=== PATIENT | male | born 1955 | race Caucasian/White ===

== ENCOUNTER 2022-05-17 13:20 | Outpatient (CLI) | payer OTHER, SELFPAY ==
[2022-05-18 14:48] LABS: Albumin* 4.6 g/dL (3.3-5.0)
[2022-05-18 14:49] LABS: Chloride* 105 mmol/L (96-114); Potassium* 5.2 mmol/L (3.6-5.1); Sodium* 142 mmol/L (135-149)
[2022-05-18 14:51] LABS: Aspartate Amino Transferase* 22 U/L (12-35); Bilirubin Total* 0.5 mg/dL (0.1-1.5); Blood Urea Nitrogen* 37 mg/dL (7-30); Carbon Dioxide* 28 mmol/L (20-32); Cholesterol* 130 mg/dL (90-199); Creatinine* 1.5 mg/dL (0.5-1.5); Estimated Glomerular Filt Rate 50 ml/min; Total Protein* 7.3 g/dL (6.0-8.3)
[2022-05-18 14:52] LABS: Alanine Aminotransferase* 17 U/L (4-50); Alkaline Phosphatase* 98 U/L (40-150); Calcium* 10.2 mg/dL (8.4-10.6); Glucose* 98 mg/dL (60-115); HDL Cholesterol* 55 mg/dL (>=40); LDL Cholesterol Calculated 54 mg/dL (<100); Triglycerides* 105 mg/dL (40-149)
[2022-05-18 15:23] LABS: PSA Screen* 0.34 ng/mL (0.10-4.00)
== END 2022-05-17 13:21 | disposition home or self-care (01) ==
PROVIDERS: PCP Family Medicine; Visit Provider Family Medicine
DX: Z00.00 Encounter for general adult medical examination without abnormal findings (principal); F41.8 Other specified anxiety disorders; R63.4 Abnormal weight loss; E78.5 Hyperlipidemia, unspecified; I10 Essential (primary) hypertension; D64.9 Anemia, unspecified; Z12.5 Encounter for screening for malignant neoplasm of prostate
CPT/HCPCS: 80053; 80061; 84153; 84443

== ENCOUNTER 2022-07-12 14:54 | Outpatient (CLI) | payer OTHER, SELFPAY ==
[2022-07-12 22:08] LABS: Iron* 70 ug/dL (49-181)
[2022-07-12 22:51] LABS: Vitamin B12* 572 pg/mL (243-894)
[2022-07-14 15:51] LABS: Hematocrit (client supplied) 37.6 %
== END 2022-07-12 14:55 | disposition home or self-care (01) ==
PROVIDERS: PCP Family Medicine; Visit Provider Family Medicine
DX: Z00.00 Encounter for general adult medical examination without abnormal findings (principal); D64.9 Anemia, unspecified; R63.4 Abnormal weight loss; C20 Malignant neoplasm of rectum; R07.9 Chest pain, unspecified
CPT/HCPCS: 82607; 82728; 82747; 83540; 84443

== ENCOUNTER 2022-07-27 13:29 | Outpatient (CLI) | payer OTHER, SELFPAY ==
[2022-07-27 14:35] VITALS: BP 122/82; PULSE 103; RESP 16
--- NOTE | 2022-07-27 14:51 | W.PM.STED ---
Stress Test Note Date Time Seen by Provider: 14:28 Date Seen: 07/27/22 Date of test: 07/27/22 Providers Referring provider: Remy Valentine Primary care provider: Remy Valentine Stress test physician: Licha Patrick Stress Test Note Stress test ordered: Stress Echo Indication for test: Chest pain, stress test medical history reviewed. Stress test medicine: None Results discussion: Resting EKG: Sinus rhythm, 76 beats per minute Resting blood pressure: 112/82 Stress test: Patient exercised following standard Bony protocol treadmill stress echo. He exercise to 9 minutes 14 seconds, terminated the test due to legs feeling sore, shortness of breath with this level exertion and achieving target heart rate. He achieved 10.7 Mets with this level of activity. He had a maximal heart rate of 153 beats per minute which was 118% of a calculated target heart rate of 129, maximal calculated heart rate 152. Rate pressure product is 22,032. There was no arrhythmias, no identifiable ischemia. Echo images to couple this for a full formal diagnostic. Impression: Subjectively negative, objectively negative EKG portion of this stress test. Follow up suggested: Patient discharged in stable condition to await the echo images to couple this for a full formal report. He will await contact with Dr. Valentine.
== END 2022-07-27 14:46 | disposition home or self-care (01) ==
LOC: STRESS 13:30
PROVIDERS: PCP Family Medicine; Visit Provider Family Medicine
DX: R07.9 Chest pain, unspecified (principal); M54.2 Cervicalgia
CPT/HCPCS: 93016; 93325; 93351

== ENCOUNTER 2022-12-29 10:34 | Outpatient (CLI) | payer OTHER, SELFPAY ==
--- NOTE | 2022-12-29 11:00 | CRLHL7_ITS ---
For Patients: As a result of the Century Cures Act, medical imaging exams and procedure reports are released immediately into your electronic medical record. You may view this report before your referring provider. If you have questions, please contact your health care provider. Indication: Abnormal chest x-ray Technique: Post contrast CT chest. 69 cc Isovue 370 intravenous contrast. Please note that all CT scans at this facility use dose modulation, iterative reconstruction, and/or weight-based dosing when appropriate to reduce radiation dose to as low as reasonably achievable. Comparison: Chest x-ray 12/21/2022 Findings: Multiple calcified right hilar lymph nodes are present representing sequela of granulomatous disease. Innumerable calcified granulomas throughout the liver and spleen also noted. There is a cystic mass arising from the visualized right kidney measuring 6.5 cm. Atherosclerotic changes noted within the aorta. There is diffuse distention of the esophagus with air throughout its course. Visualized thyroid normal. No enlarged intrathoracic lymph nodes. Severe degenerative changes are present within the upper lumbar spine. No acute fracture. Calcified granuloma is present within the right lower lobe measuring 5.1 millimeters. Calcified nodule also present within the right perihilar lung measuring 6.0 cm. No suspicious pulmonary nodule. No infiltrate, edema, effusion or pneumothorax. Impression: Sequela of granulomatous disease with calcified right hilar lymph nodes and calcified right-sided pulmonary nodules along with calcified granulomas in the liver and spleen. No suspicious pulmonary nodule. Diffuse esophageal distention with air, consider GI consultation. Large cyst arising from the right kidney. 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 Please note that all CT scans at this facility use dose modulation, iterative reconstruction, and/or weight-based dosing when appropriate to reduce radiation dose to as low as reasonably achievable. Dictated by Jax Rose MD @ 12/29/2022 1:31:36 PM (Electronically Signed)
== END 2022-12-29 10:35 | disposition home or self-care (01) ==
PROVIDERS: PCP Family Medicine; Visit Provider Family Medicine
DX: R91.8 Other nonspecific abnormal finding of lung field (principal); N28.1 Cyst of kidney, acquired; M51.36 Other intervertebral disc degeneration, lumbar region
CPT/HCPCS: 71260; Q9967

== ENCOUNTER 2023-05-27 11:32 | Outpatient (CLI) | payer OTHER, SELFPAY | END 2023-05-27 11:33 | disposition home or self-care (01) | PROVIDERS: PCP Family Medicine; Visit Provider Family Medicine | DX: Z00.00 Encounter for general adult medical examination without abnormal findings (principal); E78.5 Hyperlipidemia, unspecified; D64.9 Anemia, unspecified; R10.9 Unspecified abdominal pain; I10 Essential (primary) hypertension | CPT/HCPCS: 80053; 80061; 84153 ==

== ENCOUNTER 2024-07-04 11:00 | Outpatient (CLI) | payer OTHER, SELFPAY | END 2024-07-04 11:01 | disposition home or self-care (01) | LOC: NFLDREF 07-05 14:29 | PROVIDERS: PCP Family Medicine; Referring Provider Family Medicine; Visit Provider Family Medicine | DX: Z00.00 Encounter for general adult medical examination without abnormal findings (principal); E78.5 Hyperlipidemia, unspecified; I10 Essential (primary) hypertension; D64.9 Anemia, unspecified; Z13.1 Encounter for screening for diabetes mellitus; Z12.5 Encounter for screening for malignant neoplasm of prostate | CPT/HCPCS: 80053; 80061; 82607; 82728; G0103 ==

== ENCOUNTER 2025-01-28 14:54 | Outpatient (CLI) | payer OTHER, SELFPAY | END 2025-01-28 14:55 | disposition home or self-care (01) | PROVIDERS: PCP Family Medicine; Visit Provider Family Medicine | DX: D64.9 Anemia, unspecified (principal); R53.83 Other fatigue; R10.11 Right upper quadrant pain | CPT/HCPCS: 80053; 82728; 83540; 83550; 84443 ==

== ENCOUNTER 2025-07-08 10:50 | Outpatient (CLI) | payer OTHER, SELFPAY | END 2025-07-08 10:51 | disposition home or self-care (01) | LOC: NFLDREF 07-11 13:50 | PROVIDERS: PCP Family Medicine; Referring Provider Family Medicine; Visit Provider Family Medicine | DX: Z13.9 Encounter for screening, unspecified (principal); E78.5 Hyperlipidemia, unspecified | CPT/HCPCS: 80053; 80061; 82607; 82728; G0103 ==

== ENCOUNTER 2025-07-11 10:50 | Outpatient (CLI) | payer OTHER, SELFPAY | END 2025-07-11 10:51 | disposition home or self-care (01) | LOC: NFLDREF 07-17 04:41 | PROVIDERS: PCP Family Medicine; Referring Provider Family Medicine; Visit Provider Family Medicine | DX: D64.9 Anemia, unspecified (principal) | CPT/HCPCS: 83540 ==